=== PATIENT | male | born 1945 | race Caucasian/White ===

== ENCOUNTER → 2021-07-30 | Outpatient (CLI) | payer MEDICARE ==
[~2021-07-30] MED LIST: AMOXICILLIN PO; ASPIR-LOW81 MG PO; ATENOLOL25 MG PO; CLONAZEPAM1 MG PO
== END ==
LOC: HEART CORB 09:00
DX: I49.3 Ventricular premature depolarization (principal); I08.3 Combined rheumatic disorders of mitral, aortic and tricuspid valves
CPT/HCPCS: 93306

== ENCOUNTER → 2021-08-27 | Outpatient (CLI) | payer MEDICARE | LOC: HEART CORB 08-20 09:30 | DX: R07.89 Other chest pain (principal); I10 Essential (primary) hypertension; R00.2 Palpitations; R06.02 Shortness of breath | CPT/HCPCS: 78452; A9502; J2785 ==